=== PATIENT | female | born 1980 | race Caucasian/White ===

== ENCOUNTER 2020-12-15 11:02 | Emergency (ER) | payer OTHER ==
[~2020-12-15 11:02] MED LIST: MACROBID 100 M100 MG PO; NEXIUM2.5 MG PO; PHENERGAN 25 MG25 M1 PO
[2020-12-15 14:33] LABS: HEMOGLOBIN 14.3 gm/dl (12.3-15.3); RED BLOOD COUNT 4.87 M/UL (4.00-5.10); WHITE BLOOD COUNT 14.5 K/UL (4.5-11.0)
[2020-12-15 14:56] LABS: BUN/CREATININE RATIO 18 (0-10)
== END 2020-12-16 12:05 ==
LOC: ER1 11:02
PROVIDERS: Family Medicine
DX: F11.23 Opioid dependence with withdrawal (principal); F32.9 Major depressive disorder, single episode, unspecified; I10 Essential (primary) hypertension; Z59.0 Homelessness; Z88.8 Allergy status to other drugs, medicaments and biological substances
CPT/HCPCS: 36415; 71045; 80053; 81001; 82728; 83615; 83690; 84703; 85025; 85379; 86140; 96374; 96375; 96376; 99284; J1885; J2060; J2405

== ENCOUNTER 2021-07-21 16:30 | Emergency (ER) | payer OTHER ==
[2021-07-21 17:18] LABS: RED BLOOD COUNT 4.59 M/UL (4.00-5.10); WHITE BLOOD COUNT 6.2 K/UL (4.5-11.0)
[2021-07-21 17:42] LABS: BUN/CREATININE RATIO 20 (0-10)
[2021-07-21] MEDS ORDERED: CEPHALEXIN500 M1 PO (19:41)
[2021-07-21] MEDS ORDERED: DOXYCYCLINE HY100 M2 PO (19:41)
== END 2021-07-21 20:35 | disposition home or self-care (01) ==
LOC: ER1 16:30
PROVIDERS: Physician Assistant
DX: L03.213 Periorbital cellulitis (principal); F11.23 Opioid dependence with withdrawal; J18.9 Pneumonia, unspecified organism; F17.200 Nicotine dependence, unspecified, uncomplicated; Z79.899 Other long term (current) drug therapy
CPT/HCPCS: 71045; 80053; 82550; 82553; 83874; 84484; 85025; 85379; 93005; 96374; 96375; 99285; J0696; J1630; J2405

== ENCOUNTER 2021-07-29 14:49 | Emergency (ER) | payer OTHER ==
[~2021-07-29 14:49] MED LIST changes: +CEPHALEXIN500 M1 PO; +DOXYCYCLINE HY100 M2 PO
[2021-07-29 15:43] LABS: HEMOGLOBIN 11.6 gm/dl (12.3-15.3); RED BLOOD COUNT 3.9 M/UL (4.00-5.10); WHITE BLOOD COUNT 6.5 K/UL (4.5-11.0)
[2021-07-29 16:07] LABS: BUN/CREATININE RATIO 18 (0-10)
== END 2021-07-29 19:05 | disposition home or self-care (01) ==
LOC: ER1 14:49
PROVIDERS: Student in an Organized Health Care Education/Training Program
DX: R00.2 Palpitations (principal); F17.210 Nicotine dependence, cigarettes, uncomplicated
CPT/HCPCS: 71045; 80053; 82550; 82553; 83874; 84484; 85025; 93005; 99285

== ENCOUNTER → 2021-07-30 | Outpatient (CLI) | payer OTHER | LOC: HEART 5 15:51 | DX: R00.2 Palpitations (principal) ==